=== PATIENT | male | born 1970 | race Caucasian/White ===

== ENCOUNTER 2024-09-29 12:56 | Outpatient (CLI) | payer BC | END 2024-09-29 12:57 | disposition home or self-care (01) | LOC: CT 12:56 | PROVIDERS: ATTEND Otolaryngology | DX: H90.A32 Mixed conductive and sensorineural hearing loss, unilateral, left ear with restricted hearing on the contralateral side (principal); Z01.818 Encounter for other preprocedural examination; L89.153 Pressure ulcer of sacral region, stage 3 | CPT/HCPCS: 70480; 80048; 85027; 93005; 93010 ==

== ENCOUNTER 2024-10-06 12:41 | Outpatient (CLI) | payer BC ==
[~2024-10-06 12:41] MED LIST: Magnevist 469MG/ML 20 ML VIAL ONE
== END 2024-10-06 12:42 | disposition home or self-care (01) ==
LOC: BICMRI 12:41
PROVIDERS: ATTEND Otolaryngology
DX: H71.92 Unspecified cholesteatoma, left ear (principal); H73.892 Other specified disorders of tympanic membrane, left ear
CPT/HCPCS: 70553; 74018